=== PATIENT | male | born 1955 | race Caucasian/White ===

== ENCOUNTER 2024-12-05 12:51 | Outpatient (CLI) | payer OTHER ==
[~2024-12-05 12:51] MED LIST: Magnevist 469MG/ML 20 ML VIAL ONE
== END 2024-12-05 12:52 | disposition home or self-care (01) ==
LOC: CSHMRI 12:51
PROVIDERS: ATTEND Urology
DX: R97.20 Elevated prostate specific antigen [PSA] (principal); R93.89 Abnormal findings on diagnostic imaging of other specified body structures
CPT/HCPCS: 72197